=== PATIENT | male | born 1985 | race Caucasian/White ===

== ENCOUNTER → 2019-05-09 | Emergency (ER) | payer MEDICAID ==
[~2019-05-09] VITALS: Ht 182.9 cm; Wt 81.1 kg
[~2019-05-09] MED LIST: ibuprofen tablet 400 MG TABLET PO ONE
[2019-05-09 02:02] VITALS: BP 145/96
== END | disposition home or self-care (01) ==
LOC: ER 01:53
DX: S60.511A Abrasion of right hand, initial encounter (principal); R51 Headache; F10.99 Alcohol use, unspecified with unspecified alcohol-induced disorder; Y04.8XXA Assault by other bodily force, initial encounter; Y93.89 Activity, other specified; Y92.89 Other specified places as the place of occurrence of the external cause; Y99.8 Other external cause status; Y90.9 Presence of alcohol in blood, level not specified
CPT/HCPCS: 99282; 99283